=== PATIENT | female | born 1960 | race Caucasian/White ===

== ENCOUNTER 2024-05-02 18:49 | Emergency (ER) | payer MEDICARE, MEDICAID ==
[~2024-05-02] VITALS: Ht 157.5 cm; Wt 87.3 kg
[2024-05-02] MEDS ORDERED: amLODIPine 5mg tablet PO ONE (19:10)
[2024-05-02] MEDS ORDERED: AMLO2.5T2 PO (19:13)
[2024-05-02] MEDS: amLODIPine 2.5mg tablet PO ONE (19:28)
[2024-05-02 20:27] VITALS: BP 189/101; PULSE 80; RESP 18; TEMP 97.9; O2SAT 99
== END 2024-05-02 20:29 | disposition home or self-care (01) ==
LOC: ER 18:50
DX: S80.11XA Contusion of right lower leg, initial encounter (principal); I10 Essential (primary) hypertension; Z79.899 Other long term (current) drug therapy; Z98.51 Tubal ligation status; X58.XXXA Exposure to other specified factors, initial encounter; Y93.89 Activity, other specified; Y92.89 Other specified places as the place of occurrence of the external cause; Y99.8 Other external cause status
CPT/HCPCS: 99283; A6449